=== PATIENT | female | born 1970 | race Caucasian/White ===

== ENCOUNTER → 2023-09-14 10:48 | Outpatient (REF) | payer OTHER, SELFPAY ==
[2023-09-14 13:35] LABS: Hepatitis B Surface Antibody Negative
[2023-09-14 19:18] LABS: Rubella Positive
[2023-09-16 12:23] LABS: Quantiferon Mitogen minus NIL 5.57 IU/mL; Quantiferon NIL 0.01 IU/mL; Quantiferon TB Gold Plus Negative (Negative)
[2023-09-17 18:10] LABS: Mumps Virus IgG Negative; Rubeola (Measles) IgG Positive; Varicella Zoster IgG (VZV) Positive
== END ==
LOC: OHS 10:48
PROVIDERS: ATTENDING PHYSICIAN Nurse Practitioner Family
DX: Z23 Encounter for immunization (principal)
CPT/HCPCS: 36415; 86480; 86706; 86735; 86762; 86765; 86787

== ENCOUNTER → 2025-02-24 11:43 | Outpatient (REF) | payer OTHER, SELFPAY | LOC: WDC 11:43 | PROVIDERS: ATTENDING PHYSICIAN Obstetrics & Gynecology; FAMILY PHYSICIAN Family Medicine | DX: Z12.31 Encounter for screening mammogram for malignant neoplasm of breast (principal) | CPT/HCPCS: 77063; 77067 ==